=== PATIENT | male | born 2000 | race Caucasian/White ===

== ENCOUNTER 2021-02-07 12:42 | Emergency (ER) | payer BC, OTHER ==
[~2021-02-07] VITALS: Ht 182 cm; Wt 100.0 kg
--- NOTE | 2021-02-07 13:26 | ED Integumentary General ---
General Stated Complaint: LT FINGER LAC Source: patient Exam Limitations: no limitations History of Present Illness Date Seen by Provider: Feb 07, 2021 Time Seen by Provider: 12:50 Initial Comments 20-year-old male with no significant past medical history coming in after he was using electric hedge tremors and got his left middle finger with it causing a l aceration and some pain. Pain is moderate, constant, throbbing, nothing seems to make it better or worse. Happened within an hour of coming to the emergency department. Tetanus is updated within the past 3 years. Otherwise denies any other acute injury. Allergies and Home Medications Allergies Coded Allergies: No Known Drug Allergies (Unverified , 02/07/21) Patient Home Medication List Home Medication List Reviewed: Yes Cephalexin (Cephalexin) 500 Mg Tablet, 500 MG PO QID Prescribed by: ROBERTO ACEVES on 02/07/21 2697 Review of Systems Review of Systems Constitutional: No chills EENTM: no symptoms reported Respiratory: no symptoms reported Cardiovascular: no symptoms reported Gastrointestinal: no symptoms reported Genitourinary: no symptoms reported Musculoskeletal: no symptoms reported Skin: other (laceration) Psychiatric/Neurological: No Symptoms Reported Endocrine: No Symptoms Reported Hematologic/Lymphatic: No Symptoms Reported All Other Systems Reviewed Negative Unless Noted: Yes Past Rtkhvws-Ggkctk-Jzqvmc Hx Patient Social History Tobacco Use?: No Past Medical History Surgeries: No Physical Exam Vital Signs Capillary Refill : General Appearance: WD/WN, no apparent distress HEENT: PERRL/EOMI, normal ENT inspection, pharynx normal Neck: non-tender, full range of motion, supple, normal inspection Cardiovascular: regular rate, rhythm, no edema, no murmur Respiratory: chest non-tender, lungs clear, normal breath sounds, no respiratory distress Gastrointestinal: normal bowel sounds, non tender, soft; No guarding Back: normal inspection Extremities: normal range of motion, no pedal edema, no calf tenderness, other (Left middle finger with a 1 and half centimeter laceration that is superficial, straight, and minimal bleeding, no nailbed involvement, normal distal sensation and capillary refill) Neurologic/Psychiatric: no motor/sensory deficits, alert, normal mood/affect Skin: normal color, warm/dry Lymphatic: no adenopathy Procedures/Interventions Wound Location: Upper Extremities (left middle finger) Wound's Depth, Shape: superficial Wound Explored: clean Irrigated w/ Saline (ccs): 300 Betadine Prep?: Yes Anesthesia: 1% Lidocaine Volume Anesthetic (ccs): 3 Suture: Ethlion Suture Size: 5-0 Number of Sutures: 3 Sterile Dressing Applied?: Yes Progress Digital block performed with complete anesthesia, wound was then sutured with minimal difficulty, hemostatic Additional Procedures: Digital Block Progress The base of the left middle finger was cleaned and 3 cc of 1% lidocaine used for a digital block with complete anesthesia, tolerated procedure well with minimal bleeding or pain. Progress/Results/Core Measures Results/Orders My Orders Orders - ROBERTO ACEVES MD Ibuprofen Tablet (Motrin Tablet) (02/07/21 13:30) Finger(S) (02/07/21 13:26) Progress Progress Note : Progress Note 20-year-old male with above history coming in after taking a trimmer press clippings to his left middle finger. ABCs were intact and vitals were stable on presentation. Physical exam with a 1-1/2 cm laceration to the left middle finger that is straight edged with no loss of tissue. He has full function of all extension and flexion of the finger without any evidence of tendon injury. Digital block performed with good anesthesia. It was then closed with nonabsorbable suture that which needs to come out in 1 week. X-ray obtained and interpreted by me showing no fracture as well. Given this was a dirty hedge tremor we will send him home with antibiotics. He is up-to-date on tetanus already. He was then discharged home in stable condition with strict return precautions peer Diagnostic Imaging Diagonstic Imaging: Xray Plain Films/CT/US/NM/MRI: other (left middle finger) Comments [facility] [place], [place] NAME: ASH GRAY [facility] REC#: [id number] PT STATUS: REG ER : 2000 PHYSICIAN: ROBERTO ACEVES MD ADMIT DATE: 02/07/21/ER FS Draft Date of Exam:02/07/21 FINGER(S) INDICATION: Laceration to the left middle finger. FINDINGS: Three views of the left middle finger show no fracture, dislocation, or other acute bony abnormality. No foreign body is seen. IMPRESSION: No bony abnormality is seen. Dictated on workstation # [id number] Dict: 02/07/21 1345 Trans: 02/07/21 1347 AS6 [id number] Interpreted by: FRANKIE DOMÍNGUEZ MD Electronically signed by: Departure Impression Primary Impression: Finger laceration Qualified Codes: S61.213A - Laceration without foreign body of left middle finger without damage to nail, initial encounter Disposition: HOME, SELF-CARE Condition: Improved Departure-Patient Inst. Decision time for Depature: 13:40 Referrals: NO,LOCAL PHYSICIAN (PCP/Family) Primary Care Physician Patient Instructions: Laceration Repair With Stitches (DC) Add. Discharge Instructions: The stitches need to come out in 1 week. Take ibuprofen 600 mg every 6 hours as needed for pain. Do not let the wound get completely submerged in water until the stitches are out. We also sent an antibiotic given the wound was cut with a dirty head tremor. If you have any redness following up your finger, pus coming out, or any fever then you need to see the doctor sooner. Scripts Cephalexin (Cephalexin) 500 Mg Tablet 500 MG PO QID for 5 Days, #20 TAB Prov: ROBERTO AECVES MD 02/07/21 ROBERTO ACEVES MD Feb 07, 2021 13:26
[2021-02-07] MEDS ORDERED: IBUPROFEN 600 MG (MOTRIN) TAB PO ONE (13:30)
[2021-02-07] MEDS ORDERED: CEPH500T PO (13:37)
--- NOTE | 2021-02-07 13:48 | Diagnostic Imaging Report ---
INDICATION: Laceration to the left middle finger. FINDINGS: Three views of the left middle finger show no fracture, dislocation, or other acute bony abnormality. No foreign body is seen. IMPRESSION: No bony abnormality is seen. Dictated by: Dictated on workstation # [id number]
[2021-02-07 15:12] VITALS: BP 139/78
== END 2021-02-07 13:48 | disposition home or self-care (01) ==
LOC: ER FS 12:44
DX: S61.213A Laceration without foreign body of left middle finger without damage to nail, initial encounter (principal); W29.3XXA Contact with powered garden and outdoor hand tools and machinery, initial encounter
CPT/HCPCS: 12001; 73140